=== PATIENT | female | born 1995 | race Caucasian/White ===

== ENCOUNTER 2017-04-08 17:06 | Emergency (ER) | payer OTHER ==
[~2017-04-08] VITALS: Ht 167.6 cm; Wt 59.0 kg
[~2017-04-08 17:06] MED LIST: BACTRIM DS TAB1 EACH PO; DOXYCYCLINE HY100 MG PO; METHERGINE0.2 MG PO; NORCO 5-325 TA1 EACH PO; PRENATAL COMPL1 EACH PO; PROVENTIL HFA6.7 GM INH; TYLENOL325 MG PO; ZOFRAN4 MG PO
[2017-04-08] MEDS ORDERED: ZITHROMAX250 MG PO (18:16)
[2017-04-08] MEDS ORDERED: TYLENOL WITH C1 EACH PO (18:16)
== END 2017-04-08 18:35 | disposition home or self-care (01) ==
LOC: ED 17:06
DX: J01.90 Acute sinusitis, unspecified (principal); J45.909 Unspecified asthma, uncomplicated; F17.200 Nicotine dependence, unspecified, uncomplicated
CPT/HCPCS: 71020; 99283

== ENCOUNTER 2018-04-15 19:52 | Inpatient (IN) | payer OTHER ==
[~2018-04-15] VITALS: Ht 167.6 cm; Wt 59.0 kg
[~2018-04-15 19:52] MED LIST changes: +TYLENOL WITH C1 EACH PO; +ZITHROMAX250 MG PO
--- NOTE | 2018-04-16 02:40 | NUR ---
PT TO CCU PER STRETCHER. IS ALERT, ORIENTED, SPEECH SOMEWHAT RAMBLING AT TIMES. DENIES PAIN. HAS LOOSE HARSH COUGH. STATED HAD A "STAPH" INFECTION POINTING TO MONS AREA. NO REDNESS, SWELLING NOTED, QUESTIONABLE SL THICKENING NOTED RIGHT SIDE, NO TENDERNESS NOTED. PT INFORMED WILL CONTINUE IVF AND ABX. URINE SENT TO LAB.
--- NOTE | 2018-04-16 03:05 | NUR ---
WAS GIVEN EAR PLUGS TO HELP WITH SLEEP, EYES CLOSED, RESP REG.
--- NOTE | 2018-04-16 04:07 | NUR ---
AWAKE, REQUESTING THAT SL BE WRAPPED. NO OTHER C/O.
--- NOTE | 2018-04-16 04:26 | NUR ---
GIVEN PUDDING C/O BEING HUNGRY.
--- NOTE | 2018-04-16 06:20 | NUR ---
IS STARTING TO HAVE CHILLS, T 98.8. GIVEN 500MG TYLENOL FOR COMFORT.
--- NOTE | 2018-04-16 07:04 | NUR ---
PT FEELS LIKE NODULE ON L SIDE OF MONS IS GETTING BIGGER "I HAVE A STAPH INFECTION" ALSO C/O LOWER ABD PAIN THAT INCCREASES WITH COUGHING.
--- NOTE | 2018-04-16 07:30 | NUR ---
PT SHIFT REPORT RECEIVED FROM HAT BINDER RN. PT IS RESTING IN BED A THIS TIME AND CALLS APPROPRIATELY. WILL CONTINUE TO CLOSELY MONITOR.
--- NOTE | 2018-04-16 08:30 | NUR ---
CALLED AND ORDERED A BOWL OF FRESH FRUIT. ASSESSMENT COMPLETED. BREATH SOUNDS CLEAR. OCCASIONAL COUGH. BOWEL TONES ACTIVE. WILL CONTINUE TO CLOSELY MONITOR.
--- NOTE | 2018-04-16 09:30 | NUR ---
PT RESTING IN BED A THIS TIME AND STATES SHE DOES NOT NEED ANYTHING AT THIS TIME. WILL CONTINUE TO CLOSELY MONITOR. PT CALLS APPROPRIATELY.
--- NOTE | 2018-04-16 11:10 | NUR ---
SPOKE WITH PATIENT IN ROOM. PATIENT HAS NO AMBULATION ISSUES. PATIENT IS HOMELESS AT THIS TIME, STAYING WITH VARIOUS FRIENDS. PATIENT NEEDS PCP. 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 WE DISCUSSED THAT I CAN HAVE CHW HELP HER WITH RESOURCES AND GETTING PCP. SHE ALSO HAS A DAUGHTER IN THE [facility] AREA SHE WANTS TO STAY CLOSE TOO. SHE IS AGREEABLE TO WORK WITH CHW. SHE HAS A CELL PHONE [phone] AND ASKS FOR CHW TO CALL HER ON IT TO SET UP HELP AFTER DISCHARGE. NO FURTHER QUESTIONS AT THIS TIME.
--- NOTE | 2018-04-16 11:13 | NUR ---
IN TO UPDATE PATIENT THAT MD WILL BE IN TO SEE HER A LITTLE LATER. PT IS AGREEABLE TO PLAN. FRESH FRUIT AT THE PATIENTS BEDSIDE FOR HER TO SNACK ON. PT HAS A VISITOR IN THE ROOM AT THIS TIME. WILL CONTINUE TO CLOSELY MONITOR URINE OUTPUT.
--- NOTE | 2018-04-16 13:11 | NUR ---
PT UP EATING HER LUNCH. PT VITALS TAKEN AND GONZALES EMPTIED. PT DENIES ANY OTHER NEEDS AT THIS TIME. WILL CONTINUE TO CLSOELY MONITOR.
--- NOTE | 2018-04-16 14:15 | NUR ---
PT RESTING IN BED AT THIS TIME. PT CALLS APPROPRIATELY. SNACKS ORDERED THROUGHOUT THE DAY AND PATIENT SNACKS SHE WANTS. PT STATES "I DONT REALLY EAT MEALS, I JUST EAT SMALL SNACKS". NO OTHER ISSUES AT THIS TIME. WILL CONTINUE TO CLOSELY MONITOR.
--- NOTE | 2018-04-16 16:00 | NUR ---
PT UP TO THE SHOWER. PT WAS ABLE TO WALK TO THE SHOWER WITH MINIMAL ASSIST. WILL CONTINUE TO CLOSELY.
--- NOTE | 2018-04-16 17:00 | NUR ---
PT TOLERATED SHOWER WELL. BEDDING CHANGED. FOOD ORDERED. PT DENIES ANY OTHER NEEDS AT THIS TIME. CHRISTIAN REMAINS IN PLACE. WILL CONTINUE TO CLOSELY MONITOR.
--- NOTE | 2018-04-16 19:00 | NUR ---
MD IN AND VISTITED WITH PATIENT. PT IS AGREEABLE TO PLAN OF CARE. TOLD MD ABOUT THE PATIENTS COMPLAINT OF HEAD PAIN AND LEFT LOWER ABD PAIN ONLY WITH COUGHING. WILL CONTINUE TO CLOSELY MONITOR. PER MD GIVE 500ML BOLUS AND INCREASE IV FLUIDS AND ENCOURAGE ORAL INTAKE OF FLUID. WILL CONTINUE TO CLOSELY MONITOR.
--- NOTE | 2018-04-16 19:30 | NUR ---
REPORT [facility] N[facility]SE. PT UP IN BED VISITING WITH FRIEND AT THIS TIME.
--- NOTE | 2018-04-16 20:30 | NUR ---
PT UP IN BED EATING SNACK AND VISITING WITH FRIEND. PT STATE SHE IS FEELING MUCH BETTER TODAY. VITAL SIGNS, BP 107/65, MAP 75, HR 105, AFEBRILE. LUNGS CLEAR THROUGHOUT, OCCANSSIONAL PRODUCTIVE HARSH COUGH WITH YELLOW SPUTUM, C/O INCEASED PRESSURE IN HEAD WITH COUGHING. GONZALES CATH IN PLACE DRAINING YELLOW URINE, CATH CARE COMPLETED, WNL. DENIES OTHER NEEDS. CALL LIGHT WITHIN REACH.
--- NOTE | 2018-04-16 22:58 | EKG ---
[facility] [address] [place], [place] [address] Signed Supraventricular tachycardia Otherwise normal ECG No previous ECGs available Confirmed by ABI BARAJAS MD ([id number]) on 04/16/2018 10:58:42 PM Electronically Signed By: ABI BARAJAS MD 04/16/18 2258 PATIENT NAME: LUCILLE MIRAMONTES Electrocardiogram DATE OF : [birth year] PHYSICIAN: ABI BARAJAS MD REPORT #: [id number] REPORT IS CONFIDENTIAL AND NOT TO BE RELEASED WITHOUT AUTHORIZATION
--- NOTE | 2018-04-16 23:00 | NUR ---
PT RESTING IN BED WITH EYES CLOSED, RESPIRATIONS EVEN AND UNLABORED, NO ACUTE CHANGES.
--- NOTE | 2018-04-17 00:30 | NUR ---
NO ACUTE CHANGES IN ASSESSMENT. PT RESTING COMFORTABLY IN BED. WILL CONTINUE TO MONITOR.
--- NOTE | 2018-04-17 01:00 | NUR ---
NOISES HEAD COMING FROM PT ROOM. PT NOTED TO BE RESTLESS IN BED, PT AWAKENS EASILY TO VERBAL STIMULI, PT STATES SHE IS HAVING "BAD DREAMS." PT REQUESTING JUICE, PROVIDED. PT NOTED TO BE FLUSHED AND WARM TO TOUCH, TEMPORAL TEMP 101.6, 500 MG TYLENOL GIVEN. WILL CONTINUE TO MONITOR AND INFORM PROVIDER.
--- NOTE | 2018-04-17 02:00 | NUR ---
TEMP REASSESSED AT THIS TIME AND NOTED TO BE 100.3, WILL CONTINUE TO MONITOR. PT NOTED TO BE RESTLESS IN BED, TALKING IN HER SLEEP, AND HR INCEASED TO 130'S. PT GENTLY REASSURED OF SAFETY, HR NOTED TO QUICKLY DECREASE TO LOW 100'S, PT REPOSITIONED AND APPEARS TO BE RESTING COMFORTABLY. GONZALES CATH EMPTIED, 500 ML YELLOW URINE NOTED FOR 4 HOUR OUTPUT.
--- NOTE | 2018-04-17 04:00 | NUR ---
PT AFEBRILE AT THIS TIME, LAST TEMP 98.9 ORALLY, CONTINUE TO MONITOR. PT REQUESTING PARTIAL BATH. PT ASSISTED TO BATHROOM, GAIT STEADY, TOLERATED WELL. AM CARE AND BATH SUPPLIES PROVIDED, LINEN CHANGED. PT ASSISTED BACK TO BED. PT REQUESTING SNACK, PROVIDED. PT STATES SHE IS FEELING BETTER AND "WANTS TO GO HOME TODAY." ADVISED PT OF PLAN OF CARE AND CONDITION, PT AGREEABLE. DENIES OTHER NEEDS. CALL LIGHT WITHIN REACH.
--- NOTE | 2018-04-17 06:00 | NUR ---
PT SLEPT FOR MOST OF THE NIGHT, PT REPORTS HAVING "BAD DREAMS," HR NOTED TO INCREASE TO 120-130'S AND RESTLESSNESS WHEN SLEEPING AT TIMES, HR AND RESTLESS QUICKLY DECREASES WITH REASSURANCE. LUNGS HAVE REMAINED CLEAR THROUGHOUT, OCCANSSIONAL COUGH WITH YELLOW SPUTUM, TOLERATING ROOM AIR. PT HAS REMAINED IN SINUS TACH FOR ENTIRE SHIFT. PT TOLERATING REGULAR DIET, DENIES NAUSEA. GONZALES CATH IN PLACE, VOIDING QS. PT NOTED TO HAVE A TEMP OF 101.6 THAT DECREASED TO 98.9 AFTER 500 MG TYLENOL. OVERALL NO ACUTE CHANGES. PT REPORTS FEELING BETTER AND WANTING TO KNOW WHEN SHE CAN GO HOME.
--- NOTE | 2018-04-17 08:50 | NUR ---
ASSESSMENT COMPLETED AT THIS TIME. PT PLEASANT, CALM AND COOPERATIVE WITH NO C/O PAIN, NO N/V, NO SOB OR BREATHING ISSUES OTHER THAN A FREQUENT, HARSH BUT DRY COUGH. ROOM AIR. LR RUNNING CONTINUOUSLY INTO LEFT ARM PIV. A/O X4. GONZALES CATH IN PLACE DRAINING CLEAR, YELLOW URINE; ADEQUATE URINE OUTPUT. VSS WITH LOW GRADE TEMP- PT'S FACE IS FLUSHED AND RED. LUNG SOUNDS CLEAR THROUGHOUT. PT STEADY ON HER FEET AND AMBULATES AROUND HER ROOM INDEPENDENTLY. AT THIS TIME, PT REFUSES HER LOVENOX SHOT DESPITE MY EDUCATION ON THIS AND MY RECOMMENDATION. SHE'S ALSO REFUSING THE SCHEDULED NICODERM PATCH. PT HAS ORDERED FRESH FRUIT FOR BREAKFAST. SHE HAS NO FURTHER QUESTIONS OR CONCERNS. CALL LIGHT WITHIN REACH. WILL CONTINUE TO MONITOR.
--- NOTE | 2018-04-17 10:05 | NUR ---
PER ORDER, GONZALES CATHETER REMOVED AT THIS TIME WITHOUT ANY COMPLICATION. PT EDUCATED ON MONITORING URINE OUTPUT CLOSELY FOR THE NEXT 4-6 HOURS; MEASURING HAT HAS BEEN PLACED IN THE TOILET. PT STATES HER UNDERSTANDING AND HAS NO FURTHER QUESTIONS AT THIS TIME. CALL LIGHT WITHIN REACH. WILL CONTINUE TO MONITOR.
--- NOTE | 2018-04-17 11:40 | NUR ---
PT FELT THE URGE TO URINATE AND VOIDED 450 CC CLEAR, YELLOW URINE IN THE MEASURING HAT IN THE TOILET- NO SIGN OF BLADDER RETENTION. PT STATES THERE WAS NO PAIN WITH URINATION. PT IS C/O HEADACHE PAIN AT AN 8 OUT OF 10- PRN TYLENOL GIVEN PER HER REQUEST. VANCO TROUGH HAS RESULTED AND AWAITING VANCO TO BE BROUGHT BY PHARMACY. CALL LIGHT WITHIN REACH. WILL CONTINUE TO MONITOR CONDITION WELL HEADACHE PAIN. SHE HAS NO FURTHER REQUESTS OR QUESTIONS AT THIS TIME.
--- NOTE | 2018-04-17 12:21 | NUR ---
ASSESSMENT COMPLETED AT THIS TIME. SEE CHARTING; NO CHANGES FROM AM ASSESSMENT. TYLENOL HAS BEEN GIVEN FOR PAIN AND WILL CONTINUE TO MONITOR. VANCO INITIATED. NO QUESTIONS OR CONCERNS. CALL LIGHT WITHIN REACH. FALL PRECAUTIONS IN PLACE. WILL CONTINUE TO MONITOR.
--- NOTE | 2018-04-17 13:45 | NUR ---
REPORT GIVEN TO RECEIVING EVAN ROBLES ON M/S UNIT; PT AMBULATED TO ROOM 125 AT 1345 WITH ALL BELONGINGS. TRANSFER COMPLETE.
--- NOTE | 2018-04-17 13:54 | NUR ---
PT TO FLOOR, TO ROOM 125 FROM CCU. AMBULATED FROM CCU TO ROOM 125 ACCOMPANIED BY EVAN BOLES. REPORT RECIEVED FROM EVAN BOLES VIA TELEPHONE PRIOR TO PT TRANSFER TO FLOOR. PT DENIES PAIN. LUNGS CTA, OXYGEN SATURATION LEVEL 99% ON RA. PT AMBULATED WITHOUT ISSUE, STEADY ON FEET, DENIED LIGHTHEADEDNESS OR DIZZINESS.
--- NOTE | 2018-04-17 13:56 | NUR ---
PT ASLEEP, EVAN ANAND HAD JUST GOTTEN WORD FROM DR BARAJAS TO MOVE PT TO M/S. WILL FOLLOW NEEDED
--- NOTE | 2018-04-17 15:36 | NUR ---
PT IN BED, SITTING UP. ATE 50% OF LATE LUNCH, AND IS NOW EATING ICE CREAM. DENIES PAIN, DENIES NEEDS. PROVIDED WITH FRESH ICE WATER. PERSONAL SUPPLIES AND CALL LIGHT IN REACH.
--- NOTE | 2018-04-17 16:59 | NUR ---
MED REC COMPLETE
--- NOTE | 2018-04-17 17:27 | NUR ---
PT SLEEPING SOUNDLY. NEW BAG LR IVF HUNG. PERSONAL SUPPLIES AND CALL LIGHT IN REACH.
--- NOTE | 2018-04-17 18:09 | NUR ---
PATIENT IN BED WATCHING TV. CALL LIGHT IN REACH. NO FURTHER NEEDS AT THIS TIME.
--- NOTE | 2018-04-17 18:20 | NUR ---
PT TRANSFERED FROM CCU TO ROOM 125 THIS SHIFT. PT UP INDEPENDANTLY IN ROOM, STEADY ON FEET, DENIES DIZZINESS OR LIGHTHEADEDNESS. HAS OCCASIONAL HARSH DRY COUGH, BUT LUNGS CTA. PT ON RA. HRR, PULSE 90-112. APETITE FAIR, EATING AT LEAST 50% OF MEALS. HAS LR INFUSING AT 150 ML/HR. URINE OUTPUT QUANTITY SUFFICIENT.
--- NOTE | 2018-04-17 19:07 | NUR ---
RECIEVED CHANGE OF SHIFT REPORT FROM MYA GORDON. PATIENT LAYING AWAKE IN BED. PATIENT AMBULATED TO RESTROOM INDEPENDENTLY. IV FLUIDS INFUSING PER ORDER. CALL LIGHT WITHIN REACH. NO MORE NEEDS AT THIS TIME.
--- NOTE | 2018-04-17 20:39 | NUR ---
ASSESSMENT COMPLETE. INTAKE AND OUTPUT ASSESSED. VITALS ASSESSED AND RECORDED. PATIENT REPORTS "4/10" PAIN IN HEAD, DENIES WANTING PAIN MEDICATION. MEDICATION ADMINISTRATION PER ORDER. IV ABX INFUSING PER MAR ORDER. FRESH WATER BROUGHT TO PATIENT. IV ASSESSED TO BE PATIENT, PATIENT DENIES PAIN, NO SIGNS OF REDNESS OR SWELL. PATINET DENIES HAVING SOB, DIFFICULTY BREATHING OR CHEST PAIN. PROVIDED EDUCATION TO PATIENT ABOUT COUGHING AND DEEP BREATHING, PATIENT EXPRESSED UNDERSTANDING. PROVIDED EDUCATION TO PATIENT ABOUT PRN NEB TREATMENTS IN MAR PER PATIENT REQUEST AND INQUIRY. CALL LIGHT WITHIN REACH. NO MORE NEEDS AT THIS TIME.
--- NOTE | 2018-04-17 23:25 | NUR ---
ROUNDED ON PATIENT RESTING IN BED, RESPIRATORY RATE EVEN AND UNLABORED. IV ABX INFUSING PER ORDER. POSSSESSIONS AT BEDSIDE. CALL LIGHT WITHIN REACH.
--- NOTE | 2018-04-18 00:55 | NUR ---
ROUNDED ON PATIENT RESTING IN BED WITH EYES CLOSED. IV FLUIDS INFUSING PER MAR ORDER. RESPIRATORY RATE IS EVEN AND UNLABORED. RR: 20. CALL LIGHT WITHIN REACH.
--- NOTE | 2018-04-18 03:00 | NUR ---
ASSESSMENT COMPLETE. PATIENT DENIES CHEST PAIN OR DIFFICULTY BREATHING. PATIENT REPORTS SOB, CLEAR LUNG SOUNDS ASSESSED, NO SIGNS OF RESPIRATORY DISTRESS, PATIENT ABLE TO TALK IN CLEAR AND CONCISE SENTENCES. NEW BAG OF CONTINOUE IV FLUIDS HUNG PER MAR ORDER. APPLESAUCE AND ICE WATER BROUGHT TO PATIENT PER PATIENT REQUEST. PATIENT DENIES PAIN. HAT IN TOILET EMPTIED. "PINK FISH" SALINE PROVIDED TO PATIENT BY EVAN HOWARD, FOR NOSE, PATIENT EXPRESSED COMFORT AFTER USE FOR REPORTED DECONGESTION. CALL LIGHT WITHIN REACH. NO MORE NEEDS AT THIS TIME.
--- NOTE | 2018-04-18 03:58 | NUR ---
PATIENT IS RESTING IN BED WITH EYES CLOSED, RR 17. CALL LIGHT IN REACH.
--- NOTE | 2018-04-18 04:47 | NUR ---
ROOM AIR. REGULAR DIET. CONTINOUS IV FLUIDS PER ORDER. IV ABX PER ORDER. INDEPENDENT IN ROOM. NO PRN PAIN MEDICATION DURING THIS SHIFT. A&O X3. OCCASIONAL NONPRODUCTIVE COUGH DURING SHIFT.
--- NOTE | 2018-04-18 05:17 | NUR ---
ROUNDED ON PATIENT RESTING IN BED WITH EYES CLOSED. RESPIRATORY RATE EVEN AND UNLABORED. VITALS ASSESSED AND RECORDED. INTAKE AND OUTPUT ASSESSED AND RECORDED. SPRITE BROUGHT TO PATIENT PER PATIENT REQUEST. CALL LIGHT WITHIN REACH. NO MORE NEEDS AT THIS TIME.
--- NOTE | 2018-04-18 06:30 | NUR ---
PATIENT SALINE LOCKED FOR SHOWER. MARY JANE MEDRANO IN ROOM WITH PATIENT PREPARING PATIENT FOR SHOWER.
--- NOTE | 2018-04-18 06:42 | NUR ---
WRAPPED IV SITE, PATIENT IS GOING TO TAKE SHOWER.
--- NOTE | 2018-04-18 07:37 | NUR ---
PATIENT REQUESTED NASAL DECONGESTANT. PLACED CALL TO DR BARAJAS. NEW ORDER RECEIVED. ORDER VERIFIED USING THE READBCAK METHOD.
--- NOTE | 2018-04-18 07:54 | NUR ---
REPORT RECEIVED FROM UNIONMELT OPERATOR RN. PT IN BED WITH EYES CLOSED. LR AT 150. CALL LIGHT IN REACH.
--- NOTE | 2018-04-18 08:12 | NUR ---
PATIENT SITING UP IN BED. PATIENT'S BREAKFAST ORDERED. CALL LIGHT WITHIN REACH. NO OTHER NEEDS AT THIS TIME
--- NOTE | 2018-04-18 08:45 | NUR ---
PATIENT WALKS OUTSIDE THE ROOM TWO LAPS BY HERSELF.
--- NOTE | 2018-04-18 09:21 | NUR ---
iv fluids dc'd per dr order.
--- NOTE | 2018-04-18 09:33 | NUR ---
PATIENT RESTING IN BED. VITAL SIGNS AND I&O DONE. ICE WATER GIVEN. CALL LIGHT WITHIN REACH. NO OTHER NEEDS AT THIS TIME
--- NOTE | 2018-04-18 09:53 | NUR ---
ASSESSMENT COMPLETED. LUNGS SOUND CLEAR AND DIM IN RLL. RESPIRATIONS ARE EQUAL AND NONLABORED. PT REPORTS CONGESTED FEELING IN NASAL SINUSES. REFUSED NASAL DECONGESTANT, STATING "I JUST WANT TO SLEEP". HEART SOUND IS TACHYCARDIC @107. 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 BOWEL TONES ACTIVE. PT REPORTS THE ABDOMEN APPEARS BLOATED. DENEIS HAVING BM SINCE 04/14/17. STOOL SOFTENERS ORDERED. ATE 100% OF BREAKFAST. CALL LIGHT IN REACH. DENIES FURTHER NEEDS.
--- NOTE | 2018-04-18 10:00 | NUR ---
PT AMBULATED 2 LAPS ON MED/SURG FLOOR.
--- NOTE | 2018-04-18 10:39 | NUR ---
CHW MET WITH PATIENT IN INPATIENT ROOM#125. CHW DISCUSSED WITH PATIENT ABOUT A& D SERVICES THROUGH [facility]. PATIENT IS WILLING ACCEPT HELP AND OR TREATMENT. PATIENT IS INTERESTED IN HOUSING OPTIONS, CHW PROVIDED PATIENT WITH MOVING FORWARD APPLICATION THROUGH [facility]. PATIENT STATED SHE WOULD FILL OUT THE APPLICATION AND EITHER RETURN THE APPLICATION HERSELF AND OR HAVE CHW DO IT FOR HER. CHW CALLED [facility] AND SPOKE WITH PETEY MOORE WHO WAS GOING TO CONTACT [place] TO HAVE AN ASSESSMENT DONE WITH PATIENT FOR SERVICES. WAITING ON ASSESSMENT TIME AND PHONE CALL BACK FROM LUIS A.
--- NOTE | 2018-04-18 11:51 | NUR ---
PT WITH TEMP IN 99.5. TYLENOL GIVEN. STOOL SOFTENERS ADMININSTERED.
--- NOTE | 2018-04-18 12:25 | NUR ---
PATIENT RESTING IN BED. PATIENT REFUSED ORDER LUNCH. CALL LIGHT WITHIN REACH. NO OTHER NEEDS AT THIS TIME/
--- NOTE | 2018-04-18 13:17 | NUR ---
PATIENT RESTING IN BED. VITAL SIGNS AND I&O DONE. CALL LIGHT WITHIN REACH. NO OTHER NEEDS AT THIS TIME
--- NOTE | 2018-04-18 14:10 | NUR ---
PT RESTING IN BED WITH EYES CLOSED. JASSO FINISHED INFUSING. PT IS TIRED AND IS NOT PARTICIPATING IN CONVERSATIONS. ASSESSMENT SAME PREVIOUS. CALL LIGHT IN REACH,
--- NOTE | 2018-04-18 15:48 | NUR ---
PT AGREED TO ORDER LUNCH. LUNCH AT BEDSIDE.
--- NOTE | 2018-04-18 17:43 | NUR ---
PT ON RA. TOLERATING DIET. UP INDEPENDENT IN HW, TYLENOL FOR TEMP 99.5F THIS AM. URINE OUTPUT Q/S. VS STABLE. CLEAR LUNGS. LBM 1/5, MIRALAX AND SENNA STARTED.
--- NOTE | 2018-04-18 17:56 | NUR ---
PATIENT RESTING IN BED. VITAL SIGNS AND I&O DONE. ICE WATER GIVEN. CALL LIGHT WITHIN REACH. NO OTHER NEEDS AT THIS TIME
--- NOTE | 2018-04-18 18:26 | NUR ---
PT SLEEPING AT THIS TIME, RESP EVEN AND NON LABORED. PERSONAL SUPPLIES AND CALL LIGHT WITHIN REACH.
--- NOTE | 2018-04-18 20:07 | NUR ---
received a neb tx, awake, denies sob. visiting with family. Coop with assessment
--- NOTE | 2018-04-18 20:28 | NUR ---
ROUNDED CHARGE. PATIENT IS RESTING IN BED VISITING WITH COMPANY. PATIENT DENIES ANY NEEDS AT THIS TIME. DENIES ANY COMMENTS, QUESTIONS, OR CONCERNS. CALL LIGHT IN REACH.
--- NOTE | 2018-04-18 22:09 | NUR ---
medicated wTylenol 500mg po per temp of 100.0, covers removed, room temp decreased from 76 to 70, pt instructed on CDB, semicooperative, c/o being "tired and wanting to sleep". currently restin in couch. no cough
--- NOTE | 2018-04-18 23:11 | NUR ---
PT BACK IN BED. TEMP ORALLY 99.8. CDB ENCOURAGED. DID CDB 5X, C/O " I JUST WANT TO GO BACK TO SLEEP", AWAKENS EASILY, NO DISTRESS. WILL GIVE IS AND RECHECK TEMP IN 2 HOURS
--- NOTE | 2018-04-19 01:49 | NUR ---
AWAKES EASILY, NO C./O N/V OR PAIN. TOLERATED IV ABX WELL. TEMP DOWN TO 98 ORALLY AT THIS TIME. TOLERATING FLUIDS WELL. NO SIGNS OF DRUG WITHDRAWAL NOTED. PLEASANT AND COOPERATIVE. TURNS SELF IN BED. SL INTACT. UP TO BR W/O ASSIST, VOIDING LARGE AMOUNTS OF YELLOW URINE.
--- NOTE | 2018-04-19 03:19 | NUR ---
Resting, eyes closed, IS at bedside, return demonstration done, up to 1000 at this time. no c/o sob, no n/v
--- NOTE | 2018-04-19 05:27 | NUR ---
PT HAS BEEN RESTING IN BOTH BED AND COUCH. C/O 'BEING TIRES'. NO C/O ADVERSE REACTION TO ABX. HAS TOLERATED WELL. SL PATENT. GETS UP TO BR AND HAS VOIDED QS, NO BM THIS SHIFT. NO C/O PAIN OR N/V, NO TREMORS NOTED AND NO S/SX DRUG WITHDRAWALS NOTED. COOPERATIVE. HAS A FEVER OF 100.0, RECEIVED TYLENOL AND TEMP WENT DOWN TO 98.2, IS GIVEN AND RETURN DEMONSTRATIONS DONE BY PT
--- NOTE | 2018-04-19 09:10 | NUR ---
AM MEDICATIONS REFUSED, STOOL SOFTNER, LOVENOX, AND NICOTINE PATCH, DOCTOR JENN NOTIFIED. PATIENT RESTING WITH EYES CLOSED AND ONLY REQUESTED APPLESAUCE FOR BREAKFAST. SHE DENIES ANY SOB OR PAIN AT THIS TIME AND REMAINS ON RA.
--- NOTE | 2018-04-19 12:14 | NUR ---
PATIENT BACK FROM XRAY DEPARTMENT AT THIS TIME, IV VANCOMYACIN STARTED.
--- NOTE | 2018-04-19 13:04 | NUR ---
MOVED PATIENT TO ROOM 115 PER REQUEST BY THE MD DOCTOR JENN. PATIENT AMBULATED IN THE HALLWAY WITH RN AND IV POLE, NO C/O SOB AND PATIENT WAS STEADY ON HER FEET
--- NOTE | 2018-04-19 16:09 | NUR ---
PATIENT IN BED RESTING. WATER REFRESHED. CALL LIGHT IN REACH. NO FURTHER NEEDS AT THIS TIME.
--- NOTE | 2018-04-19 17:30 | NUR ---
PT SITTING UP IN BED EATING DINNER, FRESH ICE WATER PROVIDED PER PT REQUEST. PT DENIES PAIN, NAUSEA OR SOB. PT DENIES NEEDS OR CONCERNS AT THIS TIME. WHITE BOARD UPDATED. CALL LIGHT AND PERSONAL ITEMS IN REACH.
--- NOTE | 2018-04-19 18:00 | NUR ---
PT RESTING IN BED WATCHING TV. ASSESSMENT COMPLETED. PT DENIES PIAN, SOB OR NASUEA. CALL LIGHT,H20 AND PERSONAL ITEMS IN REACH. PT ENCOURAGED TO USE I.S. 10X PER HOUR WHILE AWAKE. PT DENIES NEEDS OR CONCERNS AT THIS TIME.
--- NOTE | 2018-04-19 19:10 | NUR ---
SHIFT REPORT RECEIVED FROM DAYSHIFT RN AT BEDSIDE. PT RESTING IN BED, CALL LIGHT IN REACH. EYES CLOSED, RR EVEN AND UNLABORED.
--- NOTE | 2018-04-19 20:16 | NUR ---
CHARGE NRSE ROUNDING NOTE: IN BED, RESTING, EYES CLOSED, AWAKENS EASILY, NO C/O PAIN, NO REQUESTS
--- NOTE | 2018-04-19 21:33 | NUR ---
ASSESSMENT COMPLETE. PT A/O X3, DENIES PAIN. IV ROCEPHIN ADMINISTERED, IV SITE WNL. PT DENIES SOB, CHEST PAIN, AND DYSPNEA. FRESH JUICE PROVIDED PER PT REQUEST. NO ADDITIONAL NEEDS, CALL LIGHT IN REACH.
--- NOTE | 2018-04-19 23:31 | NUR ---
scheduled vanco infusing. iv site patent and wnl. call light in reach.
--- NOTE | 2018-04-20 00:07 | NUR ---
PT RESTING IN BED, RR EVEN AND UNLABORED. EYES CLOSED, NO DISTRESS NOTED. CALL LIGHT IN REACH. IV VANCO INFUSING PER MD ORDERS, IV SITE WNL.
--- NOTE | 2018-04-20 01:10 | NUR ---
NOTIFIED BY CONTRACT ACCOUNTANT FLORA THAT PT "FEELS WARM". ORAL TEMPERATURE OBTAINED RESULT OF 101.1, PRN TYLENOL GIVEN. EXCESS BLANKETS REMOVED, ROOM TEMPERATURE DECREASED. IV VANCO COMPLETE, PT NOW SALINE LOCKED, IV SITE WNL. MORNING ASSESSMENT COMPLETE, NO NEW CONCERNS OTHER THAN TEMPERATURE, WILL CONTINUE TO MONITOR. CALL LIGHT IN REACH. PT DENIES FURTHER NEEDS, A/O X3.
--- NOTE | 2018-04-20 06:55 | NUR ---
PT A/OX3, DENIED PAIN ALL SHIFT. VSS, PT ON RA. PT HAD TEMP OF 101.1, RESOVED WITH PRN TYLENOL. PT USES CALL LIGHT APPROPERIATELY. PT RECEIVING IV ANTIBIOTICS, SITE WNL. PT ON REGULAR DIET, TOLERATING WELL, DENIED NAUSEA ALL SHIFT.
--- NOTE | 2018-04-20 07:08 | NUR ---
Pt resting supine in bed, eyes closed and respirations even and unlabored. Call light and h20 in reach. Pt appears to be sleeping comfortably. Bedside report received from EVAN Galdamez.
--- NOTE | 2018-04-20 07:40 | NUR ---
PATIENT SITING UP IN BED. IV COVERED. SETS UP BATHROOM FOR SHOWER. PATIENT TAKES A SHOWER BY HERSELF. LINENS CHANGED. NO OTHER NEEDS AT THIS TIME
--- NOTE | 2018-04-20 09:10 | NUR ---
PATIENT SITING UP IN BED. RN IN ROOM. VITAL SIGNS AND I&O DONE. PATIENT DID NOT VOID DURING THIS PERIOD. CALL LIGHT WITHIN REACH. NO OTHER NEEDS AT THIS TIME.
--- NOTE | 2018-04-20 09:17 | NUR ---
PT SITTING UP IN BED, STATES SHE HAS ALREADY ORDERED BREAKFAST. PT REFUSES LOVENOX INJECTION, RISKS OF NOT TAKING MED DISCUSSED WITH PATIENT INCLUDING INCREASED RISK FOR BLOOD CLOTS. PT ALSO REFUSES MIRALAX AND NICODERM PATCH. ASSESSMENT COMPLETED AND FRESH ICE PROVIDED PER PT REQUEST. H20 AND CALL LIGHT IN REACH. PT STATES "WILL YOU PLEASE MAKE SURE MY DOCTOR COMES TO SEE ME THIS MORNING" PT ASSURED THAT MD WILL MAKE ROUNDS WITH HER ONCE HE IS ABLE TO DO SO. NO FURHTER NEEDS OR CONCERNS VOICED AND PT DENIES SOB, [place] OR PAIN.
--- NOTE | 2018-04-20 10:10 | NUR ---
PATIENT WALKS OUTSIDE THE ROOM ONE LAP BY HERSELF. PATIENT BACKS TO BED.
--- NOTE | 2018-04-20 11:06 | NUR ---
Pt resting supin ein bed watching tv. iv patent and pt denies numbness tingling or burning to site. iv abx now infusing -see MAR. Call light and h20 in [facility] and pt denies furhter concerns or requests. Pt appears to be in no acute distress.
--- NOTE | 2018-04-20 11:45 | NUR ---
PT CALLS NURSING STATION AND ASKS WHEN SHE CAN SPEAK WITH HER DOCTOR. PT HAS ASKED SEVERAL STAFF AND MD HAS BEEN NOTIFIED MULTIPLE TIMES OF PT'S REQUEST. PER MD'S REQUEST IT WAS AGAIN EXPLAINED TO PATIENT THAT THE DOCTOR HAS HIGHER ACUITY PATIENTS THAT HE MUST SEE BEFORE HE WILL HAVE TIME TO MAKE HIS WAY IN TO SEE HER. PATIENT VERBALIZED UNDERSTANDING. CALL LIGHT AND H20 IN REACH. PT APPEARS TO BE IN NO ACUTE DISTRESS AND DENIES FURTHER CONCERNS OR REQUESTS. FAMILY AT BEDSIDE.
--- NOTE | 2018-04-20 11:57 | NUR ---
PT UP WALKING IN HALLS, CHECKING REGULARLY ABOUT WHEN DR BARAJAS WILL COME TO HER RM. SHE FEELS BETTER, AND IS WANTING TO BE DC'D. VISITED WITH HER FOR A MOMENT, SHE IS PLEASANT, NOT HOSTILE AT ALL. GAVE ENCOURAGEMENT-SHE THANKED ME. WILL FOLLOW NEEDED
--- NOTE | 2018-04-20 12:00 | NUR ---
WAS IN TO SEE PATIENT. PT NOW UP AMBULATING IN HALLS WITH [employer] AND FAMILY.
--- NOTE | 2018-04-20 16:30 | NUR ---
pt resting supine in bed watching tv states "i'm bored, is there a music bal?" pt given tv guide. call light, h20 and personal items in reach. Pt denies having any further concerns or requests.
--- NOTE | 2018-04-20 19:05 | NUR ---
SHIFT REPORT RECEIVED FROM DAYSHIFT RN AT BEDSIDE FROM EVAN LIZAMA. PT RESTING ON COUCH, EYES CLOSED, RR EVEN AND UNLABORED. NO DISTRESS NOTED, PT AMBULATES INDEPENDENTLY IN ROOM.
--- NOTE | 2018-04-20 21:20 | NUR ---
ASSESSMENT COMPLETE. PT A/OX3. PRN TYLENOL GIVEN FOR HEAD/NECK PAIN RATED 2-3/10 AND FOR 100.1 TEMPERATURE. SAT ACT INSTRUCTOR JULY NOTIFED THIS RN OF HR107. PT INSTRUCTED TO USE IS, COUGH, AND DEEP BREATH. THIS RN RECEIVED A HR OF 98 FOLLOWING USE OF IS. PRN VISTARIL ALSO GIVEN PER PT REQUEST RELATED TO INSOMNIA. FRIEND IN ROOM AT THIS TIME. IV ROCEPHIN INFUSING, IV SITE WNL. SCHEDULED SENNA AND MIRALAX HELD PER PT REQUEST, PT HAD RECENT BM X2. NO FURTHER NEEDS, CALL LIGHT IN REACH.
--- NOTE | 2018-04-20 21:24 | NUR ---
VITALS AND I&OS DONE AND CHARTED. INFORMED HER RN HERMINIO OF TEMP 101.1 AND HEART RATE WAS ELEVATED. CEREAL, MILK, CHOCOLATE PUDDING AND APPLESAUCEGIVEN. FRESH ICE WATER ALSO. BEDSIDE TABLE AND CALL LIGH IN REACH. PT NEEDS NOTHING MORE AT THIS TIME.
--- NOTE | 2018-04-20 23:30 | NUR ---
IN ROOM TO ADMINISTER SCHEDULED VANCO. WHILE FLUSHING IV SITE, PT STATED, "I FEEL LIKE IT'S LEAKING". STEAM BOX OPERATOR LELAND IN ROOM TO ASSESS IV. IV APPEARS TO BE LEAKING, MINIMAL REDDNESS ALSO NOTED. NEW 20 GAUGE IV CATHETER PLACED BY THIS RN IN PT'S RIGHT FOREARM. IV SITE PATENT, BLOOD RETURN NOTED. IV VANCO CURRENTLY INFUSING, PT INSTRUCTED TO NOTIFY NURSING STAFF IF SWELLING, REDDNESS, OR DISCOMFORT AT IV SITE IS NOTED. PT VERBALIZED UNDERSTANDING. ICE CREAM PROVIDED AT PT'S REQUEST. NO FURTHER NEEDS, CALL LIGHT IN REACH.
--- NOTE | 2018-04-21 02:17 | NUR ---
PT RESTING IN BED, EYES CLOSED. RR EVEN AND UNLABORED. CALL LIGHT IN REACH.
--- NOTE | 2018-04-21 03:20 | NUR ---
MORNING ASSESSMENT COMPLETE. NO NEW CONCERNS. PT DENIES PAIN. DROWSY, BUT EASILY AROUSABLE AND ABLE TO FOLLOW COMMANDS. PT AMBULATING INDEPENDENTLY IN ROOM, USES CALL LIGHT APPROPERIATELY. BOWEL TONES ACTIVE, PT DENIES NAUSA, TOLERATING REGULAR DIET. CALL LIGHT IN REACH. ROOM TIDIED, BOARD UPDATED.
--- NOTE | 2018-04-21 05:19 | NUR ---
PT HAD A MITCH. VSS, PT ON RA, A/OX3. PT AMBULATES INDEPENDENTLY IN THE ROOM AND USES CALL LIGHT APPROPERIATELY. PT ON REGULAR DIET, TOLERATING WELL, DENIES NAUSEA AND ABDOMINAL TENDERNESS. PAIN CONTROLLED WITH PRN TYLENOL. PRN VISTARIL GIVEN X1 FOR INSOMNIA. PT SL, RECEIVING SCHEDULED IV ANTIBIOTICS.
--- NOTE | 2018-04-21 05:57 | NUR ---
VSS AND I&O'S RECORDED. THIS RN TO ATTEMPT TO REMOVE LEAKING IV CATHETER IN PT'S LEFT FOREARM. PT MOANING AND STATED IMPATIENTLY, "NOW? CAN YOU WAIT UNTIL THE MORNING, DO WE HAVE TO DO IT NOW?". WILL NOTIFY DAYSHIFT RN OF LEAKING IV CATHETER IN LEFT FOREARM AND HAVE DAYSHIFT REMOVE THE CATHETER PER PT REQUEST.
--- NOTE | 2018-04-21 07:00 | NUR ---
dayshift bill cardona aware of pt's leaking left forearm iv catheter and pt's desire to remove catheter in the morning.
--- NOTE | 2018-04-21 07:15 | NUR ---
PATIENT REPORT RECEIVED FROM ISIAH GORDON AT THIS TIME, PATIENT IS SLEEPING WITH EYES CLOSED NO S/S OF DISTRESS.
--- NOTE | 2018-04-21 08:15 | NUR ---
PATIENT REFUSED AM MEDICATIONS, PATIENT HAS NO C/O PAIN OR SOB AT THIS TIME
[2018-04-21] MEDS ORDERED: AUGMENTIN 875-1 EACH PO (10:21)
--- NOTE | 2018-04-21 10:47 | NUR ---
PATIENT GIVEN D/C INSTRUCTIONS, QUESTIONS ANSWERED AND SHE IS UNDERSTANDING OF PICKING UP HER ABX AND STARTING THEM TODAY.
== END 2018-04-21 10:45 | disposition home or self-care (01) | DRG 871 ==
LOC: ED 19:52 → CCU 04-16 00:52 → MS 04-17 13:52
PROVIDERS: ADMIT Internal Medicine
DX: A40.3 Sepsis due to Streptococcus pneumoniae (principal); J17 Pneumonia in diseases classified elsewhere; R65.20 Severe sepsis without septic shock; J15.20 Pneumonia due to staphylococcus, unspecified; J13 Pneumonia due to Streptococcus pneumoniae; N17.9 Acute kidney failure, unspecified; I47.1 Supraventricular tachycardia; E87.1 Hypo-osmolality and hyponatremia; B99.8 Other infectious disease; F17.210 Nicotine dependence, cigarettes, uncomplicated; I88.0 Nonspecific mesenteric lymphadenitis; J45.909 Unspecified asthma, uncomplicated; R78.4 Finding of other drugs of addictive potential in blood
CPT/HCPCS: 36415; 51701; 51702; 71045; 71046; 74176; 80048; 80053; 80202; 81001; 82570; 83605; 83690; 83735; 84300; 84703; 85007; 85025; 85032; 86703; 87040; 87070; 87088; 87205; 87449; 87502; 87899; 93005; 93010; 93306; 94640; 96361; 96365; 96367; 96375; 99285-25; 99406; J0153; J0456; J0696; J1650; J3370; J7030; J7060; J7120; Q0177

== ENCOUNTER 2022-08-08 17:01 | Emergency (ER) | payer OTHER ==
[~2022-08-08] VITALS: Ht 167.6 cm; Wt 61.2 kg
[~2022-08-08 17:01] MED LIST changes: +AUGMENTIN 875-1 EACH PO
[2022-08-08] MEDS ORDERED: ROBITUSSIN COU PO (21:48)
[2022-08-08] MEDS ORDERED: AMOX TR-K CLV1 EAC1 PO (21:48)
[2022-08-08 22:08] VITALS: BP 130/88
== END 2022-08-08 22:10 | disposition home or self-care (01) ==
LOC: ED 17:01
DX: J18.9 Pneumonia, unspecified organism (principal); J45.909 Unspecified asthma, uncomplicated; F17.200 Nicotine dependence, unspecified, uncomplicated; Z20.822 Contact with and (suspected) exposure to COVID-19
CPT/HCPCS: 36415; 71045; 80053; 81001; 83605; 84703; 85025; 87502; 87880; A9270; J0696; J7121; U0003